=== PATIENT | female | born 1955 | race Caucasian/White ===

== ENCOUNTER 2017-06-13 19:03 | Emergency (ER) | payer OTHER ==
[~2017-06-13] VITALS: Ht 160 cm; Wt 61.2 kg
--- OUTSIDE RECORDS SUMMARY | 2017-06-13 19:05 | XMS REPORT | Clinical Summary ---
Author Author [facility] Organization [facility] Address Unknown Phone Unavailable Care Team Providers Care Technical Services Coordinator Name Role Phone Asked, Pcp PCP Unavailable Allergies Active Allergy Reactions Severity Noted Date Comments Erythromycin 11/06/2016 Iodine 11/06/2016 Sulfa (Sulfonamide 11/06/2016 Antibiotics) Current Medications Prescription Sig. Disp. Refills Start End Date Status Date amoxicillin (AMOXIL) 500 0 10/29/19 Active MG tablet 17 celecoxib (CeleBREX) 200 Take 200 mg by mouth. Active MG capsule co-enzyme Q-10 30 mg Take 100 mg by mouth. Active capsule DULoxetine (CYMBALTA) 60 Take 60 mg by mouth. Active MG capsule conj Take 1 tablet by mouth. Active estrog-medroxyprogest juanjo (PREMPRO) 0.3-1.5 mg per tablet levothyroxine (SYNTHROID, Take 125 mcg by mouth. Active LEVOXYL) 125 mcg tablet melatonin 5 mg capsule Take 1 tablet by mouth. Active ranitidine (ZANTAC) 150 Take 150 mg by mouth. Active MG tablet rosuvastatin (CRESTOR) 5 Take 5 mg by mouth. Active MG tablet traZODone (DESYREL) 50 MG Take 50 mg by mouth. Active tablet SUMAtriptan (IMITREX) 100 TK 1 T PO AT ONSET OF [place]. 4 10/22/19 Active MG tablet MAY REPEAT IN 2 HOURS IF 17 NEEDED. MAX OF 2 TS PER DAY Active Problems No known active problems Encounters Date Type Specialty Care Team Description 04/30/2017 Telephone Orthopedic Surgery Mary Ellen Lowery MA 04/29/2017 Telephone Orthopedic Surgery Mary Ellen Lowery MA 04/29/2017 Telephone Orthopedic Surgery Mary Ellen Lowery MA 04/19/2017 Telephone Orthopedic Surgery Mary Ellen Lowery MA 03/25/2017 [facility] Radiology Veto Duffy Left knee pain, Encounter MD Hugo unspecified chronicity 03/12/2017 Office Visit Orthopedic Surgery Veto Duffy Left knee pain, MD Hugo unspecified chronicity (Primary Dx); Internal derangement of both knees 03/12/2017 Procedure Pass Radiology 03/11/2017 Orders Only Orthopedic Surgery Bever[place] Mary EllenANSELMO cordova Pain in both knees, unspecified chronicity (Primary Dx) 03/10/2017 Telephone Orthopedic Surgery Veto Duffy MD 03/03/2017 Telephone Orthopedic Surgery Veto Duffy MD 11/06/2016 Office Visit Ortho Sports Medicine Veto Duffy Internal derangement of MD Hugo both knees (Primary Dx) after 06/12/2016 Family History Medical History Relation Name Comments Cancer Father Heart disease Father Hypertension Father Hypertension Mother Cancer Sister Hypertension Sister Relation Name Status Comments Father Mother Sister Alive Sister Alive Social History Tobacco Use Types Packs/Day Years Used Date Never Smoker Smokeless Tobacco: Never Used Alcohol Use Drinks/Week oz/Week Comments No Sex Assigned at Date Recorded Not on file Last Filed Vital Signs Vital Sign Reading Time Taken Blood Pressure 121/74 03/12/2017 9:00 AM USABILITY STRATEGIST Pulse 98 03/12/2017 9:00 AM USABILITY STRATEGIST Temperature - - Respiratory Rate - - Oxygen Saturation - - Inhaled Oxygen - - Concentration Weight 68 kg (150 lb) 03/12/2017 9:00 AM USABILITY STRATEGIST Height 160 cm (5' 3") 03/12/2017 9:00 AM USABILITY STRATEGIST Body Mass Index 26.57 03/12/2017 9:00 AM USABILITY STRATEGIST Plan of Treatment Date Type Specialty Care Team Description 06/21/2017 Clinical Orthopedic Surgery Veto Duffy Support MD Hugo [address] [facility] [address] [place] [address] Health Maintenance Due Date Last Done Comments PAP SMEAR 1975 COLONOSCOPY 01/17/2004 MAMMOGRAM 01/17/2004 ZOSTER VACCINE 2014 INFLUENZA VACCINE 10/06/2017 Results * MRI Knee Left Wo Contrast (03/25/2017 7:29 PM) Specimen Performing Laboratory [facility] [address] [place] [address] Narrative EXAMINATION:MRI KNEE WO CONTRAST LEFT CLINICAL HISTORY: 62 years Female M25.562 Pain in left knee, knee pain TECHNIQUE:Multiplanar multisequence MR imaging of the left knee was performed without contrast. COMPARISON:None. FINDINGS: Menisci: There is mild meniscal degeneration both medially and laterally although no tears are identified. Cruciate ligaments: Intact. Collateral ligaments: Intact Osseous structures and cartilaginous surfaces: In the lateral compartment there are no focal full-thickness chondral lesions identified although mild diffuse attenuation of articular cartilage is present. Medially no focal full-thickness lesions are identified although diffuse grade III chondromalacia is present. In the patellofemoral compartment there is grade IV chondromalacia involving the central patellar facet greatest cranially and also involving the adjacent medial and lateral patellar facets. The chondral defect measuring approximately 16 mm in width and 12 mm in length is noted in the trochlear groove no chondral abnormalities are identified. Patellofemoral joint: The patella fits normally and the trochlear groove. The visualized portions of the quadriceps and patellar tendons are intact. Miscellaneous findings: There is a minimal volume of joint fluid. There is no popliteal cyst. IMPRESSION: 1. No meniscal tear or ligamentous abnormality is identified. 2. 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 3. Minimal joint effusion [id number] Procedure Note Hm Interface, Radiology Results Incoming - 03/26/2017 10:31 AM USABILITY STRATEGIST EXAMINATION: MRI KNEE WO CONTRAST LEFT CLINICAL HISTORY: 62 years Female M25.562 Pain in left knee, knee pain TECHNIQUE: Multiplanar multisequence MR imaging of the left knee was performed without contrast. COMPARISON: None. FINDINGS: Menisci: There is mild meniscal degeneration both medially and laterally although no tears are identified. Cruciate ligaments: Intact. Collateral ligaments: Intact Osseous structures and cartilaginous surfaces: In the lateral compartment there are no focal full-thickness chondral lesions identified although mild diffuse attenuation of articular cartilage is present. Medially no focal full-thickness lesions are identified although diffuse grade III chondromalacia is present. In the patellofemoral compartment there is grade IV chondromalacia involving the central patellar facet greatest cranially and also involving the adjacent medial and lateral patellar facets. The chondral defect measuring approximately 16 mm in width and 12 mm in length is noted in the trochlear groove no chondral abnormalities are identified. Patellofemoral joint: The patella fits normally and the trochlear groove. The visualized portions of the quadriceps and patellar tendons are intact. Miscellaneous findings: There is a minimal volume of joint fluid. There is no popliteal cyst. IMPRESSION: 1. No meniscal tear or ligamentous abnormality is identified. 2. 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 3. Minimal joint effusion [id number] * XR Knee 3 Vw Bilateral (03/12/2017 8:59 AM) Specimen Performing Laboratory [facility] [address] [place] [address] Narrative X-rays bilateral knees 3 views Standing AP lateral and sunrise views: x-rays reveal mild degenerative changes, weight bearing joints reasonably spared on supine films. after 06/12/2016 Insurance Payer Benefit Subscriber ID Type Phone Address Plan / Group AETNA AETNA PPO xxxxxxxxxx PPO OPEN CHOICE
--- NOTE | 2017-06-13 19:59 | Diagnostic Imaging Report ---
EXAMINATION: Head CT without contrast. HISTORY:Migraine type headache for 5 days. COMPARISON:None. TECHNIQUE: Multidetector axial images were obtained from the foramen magnum to the vertex without contrast. The images were reconstructed using brain and bone algorithms. Thin section brain images were reformatted into coronal and sagittal planes. Intravenous contrast: None IMAGE QUALITY: Acceptable. FINDINGS: Skull/scalp: No lytic or blastic. lesions. No surgical changes. Parenchyma: Nonspecific few, scattered supratentorial white matter hypodensity are likely related to small vessel ischemic changes. Focal hypodensity in the posterior and inferior aspect of left lentiform nucleus either represents a prominent perivascular space or old lacunar infarct. No acute hemorrhage, mass or acute major vascular territorial infarct. Arteries: No density suggestive of thrombosis. Dural sinuses: No abnormal density suggestive of thrombosis. Ventricles: No hydrocephalus or displacement. Extra-axial spaces: No abnormal density. Brain volume: Normal for age. Craniocervical junction: No mass, Chiari malformation, or basilar invagination. Sella: No mass. Paranasal/mastoid sinuses: Imaged portions unremarkable. IMPRESSION: No acute intracranial abnormality, particularly no acute hemorrhage, mass or acute major vascular territorial infarct. Mild supratentorial white matter microvascular ischemic changes. Signed by: Dr. Alena Solis M.D. on 06/13/2017 7:55 PM
[2017-06-13] MEDS ORDERED: KETOROLAC TROMETHAMINE 30 MG/ML VIAL IV STA (20:47)
[2017-06-13] MEDS ORDERED: ACETAMIN/BUTALBITAL/CAFFEINE TAB PO ONE (21:00)
[2017-06-13] MEDS ORDERED: SODIUM CHLORIDE 0.9% 1000ML 1,000 ML IV ONE (21:00)
[2017-06-13] MEDS ORDERED: DIPHENHYDRAMINE HCL INJ 50 MG/ML VIAL IV ONE (21:00)
[2017-06-13] MEDS ORDERED: METOCLOPRAMIDE HCL 10 MG/2ML VIAL IV ONE (21:00)
== END 2017-06-13 22:47 | disposition home or self-care (01) ==
LOC: ER 19:03
DX: G43.009 Migraine without aura, not intractable, without status migrainosus (principal); I10 Essential (primary) hypertension; M79.7 Fibromyalgia; F41.9 Anxiety disorder, unspecified; F32.9 Major depressive disorder, single episode, unspecified; K58.9 Irritable bowel syndrome, unspecified
CPT/HCPCS: 70450; 99283; J1200; J1885; J2765